=== PATIENT | female | born 1990 | race Caucasian/White ===

== ENCOUNTER 2019-08-23 04:34 | Inpatient (IN) ==
[2019-08-19 15:58] LABS: URINE SOURCE CLEAN CATCH
[2019-08-19 16:01] LABS: BASO# 0.07 X1000 (0.0-0.2); BASO% 0.8 % (0.0-0.8); EOS# 0.17 X1000 (0.0-0.7); EOS% 2.1 % (0.0-10.0); HEMOGLOBIN 13.6 g/dL (12.0-16.0); IMM GRAN# 0.02 X1000 (0.0-0.04); IMM GRAN% 0.2 % (0.0-0.5); LYMPH# 1.86 X1000 (1.2-3.4); LYMPH% 22.5 % (20.5-51.1); MCH 29.8 PG (27-31); MCHC 33.2 g/dL (33-37); MCV 89.9 FL (81-99); MONO% 7.3 % (1.7-9.3); MPV 10.1 FL (7.4-10.4); NEUT# 5.55 X1000 (1.4-6.5); NEUT% 67.1 % (42.2-75.2); PLT 244 X1000 (130-400); RBC 4.56 XMIL (4.2-5.4); RDW 12.4 % (11.5-14.5); WBC 8.27 X1000 (4.8-10.8)
[2019-08-19 16:04] LABS: BILIRUBIN URINE NEGATIVE (NEGATIVE); BLOOD URINE NEGATIVE (NEGATIVE); COLOR YELLOW; GLUCOSE URINE NEGATIVE (NEGATIVE); KETONE URINE NEGATIVE (NEGATIVE); LEUKOCYTES URINE MODERATE (NEGATIVE); NITRITE URINE NEGATIVE (NEGATIVE); PH URINE 7.5; PROTEIN URINE TRACE mg/dL (NEGATIVE); TURBIDITY URINE HAZY (CLEAR); UR EPITHELIAL CELLS >10 /HPF (<10); URINE BACTERIA 2+ /HPF; URINE RBC <10 /HPF (<10); URINE WBC TNTC /HPF (<10); UROBILINOGEN URINE NORMAL (NORMAL)
--- NOTE | 2019-08-20 16:41 | HISTORY AND PHYSICAL ---
Surgery scheduled for 08/23/2019. HISTORY OF PRESENT ILLNESS: Patient 28-year-old white female, G3, P3, who has had menorrhagia and dysmenorrhea that has been longstanding and unresponsive to different types of medical therapy. The patient has previously had tubal ligation and expresses no desire for future fertility and would like to proceed with ultimate solution with a hysterectomy. Discussed with patient the risks of surgery including bleeding, infection, bowel or bladder injury. At the same time Dr. Foreman will perform abdominoplasty. PAST MEDICAL HISTORY: Unremarkable. PAST SURGICAL HISTORY: x3 with tubal ligation. PAST OB HISTORY: G3, P3, x3. 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 REVIEW OF SYSTEMS: All systems reviewed and noncontributory. FAMILY HISTORY: Significant for diabetes mellitus. SOCIAL HISTORY: Tobacco use none, alcohol use none. MEDICATIONS: None. ALLERGIES: No known drug allergies. PHYSICAL EXAMINATION: VITAL SIGNS: Height 5 feet 3 inches, weight 155 pounds, temperature 98.2 degrees, blood pressure 126/82, pulse of 66, respirations 18. HEENT: Pupils equal, round, reactive to light, accommodation. Extraocular movements intact. Oropharynx clear. NECK: Supple. LUNGS: Clear to auscultation. HEART: Regular rate and rhythm. ABDOMEN: Bowel sounds positive. Soft, nontender. No masses palpated. Previous scars noted. PELVIC: External genitalia was normal appearance. Cervix was normal in appearance on speculum exam. Patient's last Pap smear was 2017 and was normal [address] Dr. Gerardo. EXTREMITIES: No clubbing, cyanosis or edema noted. NEURO: Cranial nerves 2-12 grossly intact. Motor 5/5. ASSESSMENT/PLAN: A 28-year-old white female, G3, P3, status post a tubal ligation, who has exhausted medical therapy and treatment of irregular menses and dysmenorrhea and wishes to proceed with operative hysterectomy. Patient counseled about the risks of surgery including bleeding, infection, bowel or bladder injury. The patient will be scheduled for TICO and bilateral salpingectomy. The patient will have abdominoplasty at the same time by Dr. Foreman. Patient counseled about the risks of surgery including bleeding, infection, bowel or bladder injury. cc: Thien Ansari III, MD
[2019-08-23] MEDS ORDERED: NS 250 ML ONE (05:41)
[2019-08-23] MEDS ORDERED: EXPAREL 1.3% ONE (05:42)
[2019-08-23] MEDS ORDERED: BACITRACIN ONE (05:42)
[2019-08-23] MEDS ORDERED: REGLAN ONE (05:56)
[2019-08-23] MEDS ORDERED: PEPCID ONE (05:56)
[2019-08-23] MEDS ORDERED: KEFZOL 1 GM/D5W 2 GM/100 ML IVPB ONE (05:57)
[2019-08-23] MEDS ORDERED: TRANSDERM-SCOP ONE (05:57)
[2019-08-23] MEDS ORDERED: LR 1,000 ML ONE (05:57)
[2019-08-23] MEDS ORDERED: VERSED ONE (06:41)
[2019-08-23] MEDS ORDERED: SUFENTA ONE (06:41)
[2019-08-23] MEDS ORDERED: DIPRIVAN 1% ONE (06:41)
[2019-08-23] MEDS ORDERED: SODIUM CHLORIDE 0.9% 10 ML ONE (06:43)
[2019-08-23] MEDS ORDERED: XYLOCAINE-MPF 2% ONE (06:43)
[2019-08-23] MEDS ORDERED: ROBINUL ONE ×2 (06:43→07:06)
[2019-08-23] MEDS ORDERED: NORCURON ONE ×2 (06:43→08:07)
[2019-08-23] MEDS ORDERED: QUELICIN (DOSE) ONE (06:43)
[2019-08-23] MEDS ORDERED: STERILE WATER INJ. ONE (06:43)
[2019-08-23] MEDS ORDERED: LUBRIFRESH PM OPH OINTMENT ONE (06:45)
[2019-08-23] MEDS ORDERED: ZOFRAN ONE (07:06)
[2019-08-23] MEDS ORDERED: DECADRON ONE (07:06)
[2019-08-23] MEDS ORDERED: NEOSTIGMINE ONE (07:06)
[2019-08-23 07:39] LABS: URINE SOURCE CATH
[2019-08-23 07:45] LABS: BILIRUBIN URINE NEGATIVE (NEGATIVE); BLOOD URINE NEGATIVE (NEGATIVE); COLOR YELLOW; GLUCOSE URINE NEGATIVE (NEGATIVE); KETONE URINE NEGATIVE (NEGATIVE); LEUKOCYTES URINE NEGATIVE (NEGATIVE); NITRITE URINE NEGATIVE (NEGATIVE); PH URINE 6.5; PROTEIN URINE NEGATIVE (NEGATIVE); SP GRAVITY URINE 1.021; TURBIDITY URINE CLEAR (CLEAR); UROBILINOGEN URINE NORMAL (NORMAL)
[2019-08-23 07:46] LABS: UR EPITHELIAL CELLS <10 /HPF (<10); URINE BACTERIA NEGATIVE /HPF; URINE RBC <10 /HPF (<10); URINE WBC <10 /HPF (<10)
[2019-08-23] MEDS ORDERED: KEFZOL 1 GM/D5W 1 GM/50 ML IVPB ONE (10:20)
--- NOTE | 2019-08-23 10:44 | OPERATIVE NOTE ---
PROCEDURE DATE: 08/23/2019 PREOPERATIVE DIAGNOSIS: Menorrhagia and dysmenorrhea. POSTOPERATIVE DIAGNOSIS: Menorrhagia and dysmenorrhea. PROCEDURE: TICO and bilateral salpingectomy. SURGEON: La Nena Kinsey. HEAD STILL OPERATOR: Dr. Mixon. ANESTHESIA: General, Dr. Green. FINDINGS: Normal-appearing uterus, tubes, and ovaries. COMPLICATIONS: None. ESTIMATED BLOOD LOSS: 100 mL. SPECIMENS REMOVED: Uterus with intact cervix and bilateral distal fallopian tubes. COUNTS: All counts were correct x3. INDICATIONS: Patient is a 28-year-old, white female G 3, P 3, status post tubal ligation and also had history of 3 prior C-sections. The patient has been through medical therapy for treatment of menorrhagia and dysmenorrhea, but to no affect. The patient also expressed desire for abdominoplasty and therefore will combine TICO and abdominoplasty. The patient was counseled about the risks of surgery including bleeding, infection, bowel or bladder injury. DESCRIPTION OF PROCEDURE: The patient was taken to OR placed in supine position. General anesthesia was employed. The patient was prepped and draped in a sterile fashion with placement of Phillip catheter. A Pfannenstiel skin incision was made on the lower abdomen using a scalpel that was taken down scissors sharply to the fascial layer. Small steve was made in the rectus fascia. Fascial incision was extended bilaterally by curved Leon scissors and pickups. Then the superior and inferior aspects of the rectus fascia were then bluntly and sharply dissected. Peritoneal layer was entered bluntly and the peritoneal incision was extended superiorly and inferiorly with care taken to avoid the bladder using Metzenbaum scissors. At this point in time, the O'King-O'Rutledge retractor was placed into the abdomen and once this was accomplished then the uterus was elevated toward the incision site using Bari clamps and the inspection showed normal anatomy of the ovaries and the uterus appeared normal. There was significant scarring of the bladder onto the anterior uterus and of note were the distal fallopian tubes. These were isolated using Brannon clamps and then LigaSure was then used to remove these without difficulty on both sides, and these were handed off to be placed in a specimen container. The round ligament was isolated using Carol clamps and then electrocautery was used to dissect this then bladder reflection dissection emanated from this. The round ligament was ligated using a transfixing stitch of 0 Vicryl and then this was used to tag the rounds on both sides. At this point in time Carol's free space was entered and then a Carol clamp was placed across the uteroovarian ligament and then LigaSure was then used to dissect this off with good hemostasis noted. This was performed on both sides. At this point in time, a curved Demi was then used to come across the uterine vessels on both sides. This was cut and then ligated using a transfixing stitch of 0 Vicryl. Dissection of the bladder from the anterior uterus was performed using Metzenbaum scissors and DeBakey's as well as a sponge stick with blunt dissection. Straight clamps were then used to come down the side of the cervix and once this was cut using scalpel on both sides, then ligated using transfixing stitches of 0 chromic, good hemostasis was noted. Continued downward dissection to the cervix and then a straight clamp placed on both sides. This was then dissected using scalpel and using transfixing stitch of 0 Vicryl. Then, able to come across the entire cervix using curved Demi clamps and then the Amado scissors were then used to remove the uterus with intact cervix. The vaginal cuff angles were closed using a Demi stitch of 0 Vicryl on both sides and then 1 stitch of 0 Vicryl [id number] in the middle and good hemostasis was noted. At this point in time, irrigation was performed and good hemostasis was noted. Inspection of the utero-ovarian ligaments, round ligament and vaginal cuff and angle stitches showed good hemostasis. Then 3 laps were removed. The O'King- O'Rutledge was removed. The peritoneal layer was closed using 0 chromic. Then electrocautery was used to obtain hemostasis and then the fascial layer was closed using 0 Maxon in a running fashion x1. Then the electrocautery was used to obtain hemostasis in the subcutaneous tissue and viridiana were then used to reapproximate the skin incision. At this point in time, Dr. Foreman will have everything redraped and re-prepped for abdominoplasty. At this point in time, all counts were correct x3. cc: Thien Ansari III, MD
[2019-08-23] MEDS ORDERED: NORCO-5 PO PRN (10:51)
[2019-08-23] MEDS ORDERED: MORPHINE IM PRN (10:51)
[2019-08-23] MEDS ORDERED: NORCO-10 PO PRN (10:51)
[2019-08-23] MEDS ORDERED: PHENERGAN IM PRN (10:51)
[2019-08-23] MEDS ORDERED: ZOFRAN IV PRN ×2 (10:51→13:30)
[2019-08-23] MEDS ORDERED: LEVSIN-SL SL PRN (10:51)
[2019-08-23] MEDS ORDERED: MOTRIN PO PRN (10:51)
[2019-08-23] MEDS ORDERED: PHENERGAN ONE (13:04)
[2019-08-23] MEDS: DILAUDID ONE ×2 (13:04→13:09)
[2019-08-23] MEDS ORDERED: MORPHINE PCA ONE (13:05)
[2019-08-23] MEDS ORDERED: ATARAX PO PRN (13:30)
[2019-08-23] MEDS ORDERED: PHENERGAN IV PRN (13:30)
[2019-08-23] MEDS ORDERED: NARCAN 0.4 MG in LR 1,000 ML IV PRN (13:30)
[2019-08-23] MEDS ORDERED: SODIUM CHLORIDE 0.9% INJ PRN (13:30)
[2019-08-23] MEDS ORDERED: BENADRYL IV PRN (13:30)
[2019-08-23] MEDS ORDERED: NARCAN IV PRN (13:30)
[2019-08-23] MEDS: MYLICON PO SCH ×3 (14:23→22:12)
[2019-08-23] MEDS ORDERED: TORADOL IV SCH (16:56)
[2019-08-23] MEDS: LR 1,000 ML IV SCH (17:23)
[2019-08-23] MEDS: KEFZOL 1 GM/D5W 1 GM/50 ML IVPB IV SCH (18:32)
--- NOTE | 2019-08-23 20:11 | OPERATIVE NOTE ---
PROCEDURE DATE: 08/23/2019 PROCEDURE: Cosmetic abdominoplasty. SURGEON: Dr. Foreman. The ICD 10 diagnosis code for this case is Z41.1 cosmetic surgery[place] [address]-A, cosmetic abdominoplasty. INDICATIONS FOR PROCEDURE: This patient is a 28-year-old white female who has had 3 C-sections and needs a hysterectomy and because the scarring in her abdomen she knows she needs an abdominal approach total hysterectomy. I sent her to Dr. Ansari for consultation about that and the plan is to do her hysterectomy and a cosmetic abdominoplasty at the same time. She was seen in the office for informed consent for the abdominoplasty with me on 08/19/2019. At that point, she understood that she would have cosmetic abdominoplasty and the goal of procedure was to remove the excess skin from her abdomen and to tighten the underlying muscles. She knows the risks include infection, blood loss, blood clots in legs, heart problems, lung problems, allergic reactions, or blood and serum collections in the operative site which might require drainage. She understands exact size, shape cannot be guaranteed as with nonoperative abdomens there can be some asymmetry from side to side. She knows her skin incisions be from waist to waist and around the umbilicus and that is where the scars will be. She knows that her umbilicus will be brought through a new hole and there can be some poor blood supply to the umbilicus and poor wound healing and blistering. She understands her lower abdomen will be numb up to a year. She knows she cannot do anything strenuous while her muscle is healing. She cannot lift anything heavy for 8 weeks. She knows she cannot have a breast reconstruction with a TRAM flap and she knows this portion of her operation is cosmetic and does not go to her insurance company. DESCRIPTION OF PROCEDURE: The patient brought to the operating room after she was marked in outpatient surgery in the standing position. She went to the operating room, had general anesthesia, was prepped and draped. The devries were discussed with Dr. Ansari and where he could make his incision for the hysterectomy and then she was prepped and draped and he proceeded to do that operation. He closed the fascia in the normal way and he stapled the skin closed. I came back to the operating room and she was re-prepped and draped for the abdominoplasty. The devries were re-marked and then the corners were tattooed with blue then the upper skin incision was made with a knife and then dissected with electrocautery to make upper breast skin incision all the way up to the xiphoid. She was put in a flexed position. The ability to reach the lower renita under the scars was confirmed. This was then cut with a blade along the lower ellipse freeing the scar from the underlying muscle and cutting around the umbilicus with a 15 blade. The skin and fat was removed from lateral to medial. Hemostasis was achieved electrocautery. Big bleeders were ligated with a figure-eight 3-0 Polysorb on a taper needle. At that point, the muscles were plicated in the midline with #1 Maxon [id number] stitches and then Exparel was injected into the muscles in the skin for postoperative pain control. The umbilicus was tagged with a silk stitch superiorly. She was irrigated with bacitracin solution. Three drains were placed. She was tacked closed with silk sutures over the drains. Then she had liposuction done at the corners of the incisions to flatten those out and the mons pubis to flatten that out. She was then closed with 2-0 Polysorb interrupted sutures in the fat, a running 3-0 Polysorb deep dermal suture followed by running 4-0 Biosyn subcuticular stitch. A round hole was made for the umbilicus to come out. The umbilicus was then stitched into the hole after was shortened slightly. It was stitched with 5-0 Polysorb interrupted deep dermal sutures followed by 5-0 nylon stitches placed in half buried horizontal mattress fashion. The drains were secured with silk drain stitches. The weight of the abdominal specimen was 1192 g. She tolerated the procedure well transported recovery room in good condition. cc: MD Thien Valenzuela III, MD
[2019-08-23] MEDS: MORPHINE PCA IV PRN (22:11)
[2019-08-23] MEDS: PERIDEX MT SCH (22:12)
[2019-08-23] MEDS: COLACE PO SCH (22:16)
[2019-08-24] MEDS: LR 1,000 ML IV SCH ×2 (01:00→09:25)
[2019-08-24] MEDS: KEFZOL 1 GM/D5W 1 GM/50 ML IVPB IV SCH ×2 (04:03→10:50)
[2019-08-24] MEDS: MORPHINE PCA IV PRN ×3 (05:19→19:50)
[2019-08-24 07:39] LABS: BASO# 0.03 X1000 (0.0-0.2); BASO% 0.2 % (0.0-0.8); EOS# 0.02 X1000 (0.0-0.7); EOS% 0.2 % (0.0-10.0); HEMATOCRIT 33.7 % (37.0-47.0); HEMOGLOBIN 10.7 g/dL (12.0-16.0); IMM GRAN# 0.04 X1000 (0.0-0.04); IMM GRAN% 0.3 % (0.0-0.5); LYMPH# 1.67 X1000 (1.2-3.4); LYMPH% 13.6 % (20.5-51.1); MCH 29.2 PG (27-31); MCHC 31.8 g/dL (33-37); MCV 92.1 FL (81-99); MONO# 1.68 X1000 (0.11-0.59); MONO% 13.7 % (1.7-9.3); MPV 11.2 FL (7.4-10.4); NEUT# 8.86 X1000 (1.4-6.5); PLT 208 X1000 (130-400); RBC 3.66 XMIL (4.2-5.4); RDW 12.7 % (11.5-14.5)
[2019-08-24] MEDS ORDERED: SALINE LOCK IV FLUID XX ONE (08:27)
[2019-08-24] MEDS: PERIDEX MT SCH ×2 (09:26→23:31)
[2019-08-24] MEDS: COLACE PO SCH ×2 (09:26→23:32)
[2019-08-24] MEDS: MYLICON PO SCH ×4 (09:26→23:32)
[2019-08-24] MEDS ORDERED: TORADOL IV ONE (17:05)
[2019-08-25] MEDS: LR 1,000 ML IV SCH ×2 (02:21→08:59)
[2019-08-25] MEDS ORDERED: D/C PCA XX ONE (08:16)
[2019-08-25] MEDS: PERIDEX MT SCH ×2 (08:57→21:12)
[2019-08-25] MEDS: COLACE PO SCH ×2 (08:57→21:12)
[2019-08-25] MEDS: MYLICON PO SCH ×5 (08:57→21:12)
[2019-08-25] MEDS: PERCOCET-10 PO PRN ×3 (09:17→21:12)
[2019-08-25] MEDS ORDERED: LOVENOX SUBQ ONE (11:08)
[2019-08-26] MEDS: PERCOCET-10 PO PRN (03:32)
[2019-08-26 07:42] VITALS: BP 111/82
--- NOTE | 2019-08-26 13:52 | DISCHARGE SUMMARY ---
ADMISSION DATE: 08/23/2019 DISCHARGE DATE: 08/26/2019 ADMISSION DIAGNOSIS: Menorrhagia and dysmenorrhea unresponsive to medical therapy as well as scarring from previous C-sections. FINAL DIAGNOSIS: Menorrhagia and dysmenorrhea unresponsive to medical therapy as well as scarring from previous C-sections. PROCEDURES: TICO, bilateral salpingectomy and abdominoplasty which was performed by Dr. Foreman. BRIEF HISTORY: Patient is a 28-year-old white female, G3, P3, who has had menorrhagia and dysmenorrhea that has been longstanding and unresponsive to different types of medical therapy. Patient has previously had a tubal ligation and expresses no desire for future fertility and would like to proceed with ultimate solution with a hysterectomy. Discussed with patient the risks of surgery including bleeding, infection, bowel or bladder injury. At the same time, Dr. Foreman will perform abdominoplasty due to scarring from 3 prior C-sections. PAST MEDICAL HISTORY: Unremarkable. PAST SURGICAL HISTORY: x3 with tubal ligation. PAST OB HISTORY: G3, P3, x3. 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 REVIEW OF SYSTEMS: All systems reviewed and noncontributory. FAMILY HISTORY: Significant for diabetes mellitus. SOCIAL HISTORY: Tobacco use none. Alcohol use none. MEDICATIONS: None. ALLERGIES: No known drug allergies. PHYSICAL EXAMINATION: Vital Signs: Height 5 feet 3 inches, weight 155 pounds. Temperature 98.2 degrees, blood pressure 126/82, pulse of 66, respirations 18. HEENT: Pupils equal, round, reactive to light and accommodation. Extraocular movements intact. Oropharynx clear. Neck: Supple. No thyromegaly. Lungs: Clear to auscultation. Heart: Regular rate and rhythm. Abdomen: Bowel sounds positive. Soft, nontender. No masses palpated. Previous scars are noted. Pelvic: External genitalia was normal in appearance. Cervix was normal. On speculum exam, the patient's last Pap smear was in 2018 and was normal as performed by Dr. Gerardo. Extremities: No clubbing, cyanosis, or edema noted. Neurologic: Cranial nerves 2-12 grossly intact. Motor 5/5. ASSESSMENT/PLAN: A 28-year-old white female, G3, P3, status post tubal ligation, who has exhausted medical therapy and treatment of irregular menses and dysmenorrhea wishes to proceed with operative hysterectomy. Patient counseled about the risks of surgery including bleeding, infection, bowel or bladder injury. The patient will also be scheduled for a TICO, bilateral salpingectomy, and at the same time abdominoplasty by Dr. Foreman. HOSPITAL COURSE: Patient had a TICO and bilateral salpingectomy performed then immediately afterwards. Dr. Олег Foreman performed abdominoplasty. The patient had a Phillip catheter still intact after surgery and had ROBERT drains placed by Dr. Foreman. The patient also had a binder placed postoperatively. She was placed on a [facility] pump. The patient was advanced on her diet as tolerated, but slowly. Postop hemoglobin was 10.7 and postop hematocrit was 33.7, white count was 12.3, and platelet count was 208,000. On postoperative day #2, the patient became more ambulatory and was placed on oral medication for pain. At the end postoperative day 2, still awaiting bowel return of bowel activity and therefore she was kept for another postoperative day due to lack of bowel function. On postoperative day #3, patient was seen and evaluated, noted to have positive flatus and was afebrile with stable vital signs and had become ambulatory, was tolerating regular diet and her pain was managed with oral medication. DISPOSITION: I felt this time patient could be discharged home. DISCHARGE PLANS: Patient is to follow up with Dr. Foreman as instructed and to follow up with Dr. Ansari on 08/30/2019 for postoperative check. Patient given instructions on pelvic rest and lifting precautions for 6 weeks. The patient was given prescriptions for Percocet 10, Colace 100 mg and iron sulfate. cc: MD Ronald Lockwood III, MD
== END 2019-08-26 09:40 | disposition home or self-care (01) | DRG 743 ==
LOC: SURHOLD 04:34 → EDSTATUS 07:00 → 4N 07:31
PROVIDERS: ADMIT Obstetrics & Gynecology; ATTEND Surgery Plastic and Reconstructive Surgery